=== PATIENT | male | born 1960 | race Caucasian/White ===

== ENCOUNTER 2017-12-27 16:55 | Emergency (ER) | payer BC ==
--- NOTE | 2017-12-27 17:31 | EDM.PDOC ---
ED HPI GENERAL MEDICAL PROBLEM - General Chief Complaint: Abdominal Pain Stated Complaint: abdominal pain Time Seen by Provider: 12/27/17 17:20 Source of Information: Reports: Patient History Limitations: Reports: No Limitations - History of Present Illness INITIAL COMMENTS - FREE TEXT/NARRATIVE: Patient presents to ER with complaints of abdominal pain. States started having an ache in his lower quadrants yesterday, more severe today. Thought possibly could be related to diverticulitis as he has had that before so took 2 cipro doses thus far that he had at home. He states the pain has steadily gotten worse. Feels more bloated now. Does passing much gas. Has been able to eat and drink without nausea or vomiting. Normally has a good BM every day , now hasn't had one since and only went in a small amount. No blood noted. Denies fever. Onset: Gradual Duration: Day(s): Location: Reports: Abdomen Quality: Reports: Ache, Sharp Severity: Moderate Improves with: Reports: Rest Associated Symptoms: Reports: Fever/Chills. 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 SCIENCE TEACHER: ALEVE, Cipro Lower Abdomen Pain Score (Numeric/FACES): 5 - Related Data Allergies Allergy/AdvReac Type Severity Reaction Status Date / Time Penicillins Allergy Redness Verified 12/27/17 17:04 Home Meds: Home Meds Aspirin [Adult Low Dose Aspirin EC] 81 mg PO DAILY 12/27/17 [History] Cabergoline [Dostinex] 5 mg PO BERMUDEZ 12/27/17 [History] Lisinopril 40 mg PO DAILY 12/27/17 [History] RABEprazole [Aciphex] 20 mg PO DAILY 12/27/17 [History] Vitamin B Complex 1 cap PO DAILY 12/27/17 [History] Past Medical History Cardiovascular History: Reports: Hypertension Gastrointestinal History: Reports: Diverticulosis Endocrine/Metabolic History: Reports: Other (See Below) Other Endocrine/Metabolic History: hyperpituitart - Past Surgical History GI Surgical History: Reports: Colonoscopy Musculoskeletal Surgical History: Reports: Carpal Tunnel Social & Family History - Tobacco Use Smoking Status *Q: Never Smoker - Caffeine Use Caffeine Use: Reports: Coffee, Soda - Recreational Drug Use Recreational Drug Use: No ED ROS GENERAL - Review of Systems Review Of Systems: See Below Constitutional: Reports: Fever, Chills. Denies: Malaise, Weakness, Decreased Appetite HEENT: Reports: No Symptoms Respiratory: Denies: Shortness of Breath, Cough Cardiovascular: Denies: Chest Pain, Edema, Lightheadedness Endocrine: Denies: Fatigue GI/Abdominal: Reports: Abdominal Pain, Constipation. Denies: Black Stool, Bloody Stool, Diarrhea, Nausea, Vomiting : Reports: No Symptoms Musculoskeletal: Reports: No Symptoms Skin: Reports: No Symptoms Neurological: Reports: No Symptoms Psychiatric: Reports: No Symptoms Hematologic/Lymphatic: Reports: No Symptoms ED EXAM, GI/ABD - Physical Exam Exam: See Below Exam Limited By: No Limitations General Appearance: Alert, WD/WN, No Apparent Distress Ears: Normal External Exam, Normal TMs Nose: Normal Inspection, Normal Mucosa, No Blood Throat/Mouth: Normal Inspection, Normal Oropharynx Head: Normocephalic Neck: Normal Inspection, Supple, Non-Tender Respiratory/Chest: No Respiratory Distress, Lungs Clear, Normal Breath Sounds Cardiovascular: Regular Rate, Rhythm, No Edema GI/Abdominal Exam: Normal Bowel Sounds, Soft, Tender (lower quads bilaterally) Extremities: Normal Inspection, Normal Capillary Refill Neurological: Alert, Oriented Skin Exam: Warm, Dry Course - Vital Signs Last Recorded V/S: Last Vital Signs Temp 98.8 F 12/27/17 16:58 Pulse 93 12/27/17 16:58 Resp 18 12/27/17 16:58 BP Pulse Ox 96 12/27/17 16:58 - Orders/Labs/Meds Orders: Active Orders 24 hr Category Date Time Status Abdomen 2V AP Flat Upright [CR] Stat Exams 12/27/17 16:49 Taken Abdomen Pelvis w Cont [CT] Routine Exams 12/27/17 Taken Bisacodyl [Dulcolax] Med 12/27/17 20:48 Ordered 10 mg PO ASDIRECTED PRN Labs: Laboratory Tests 12/27/17 12/27/17 12/27/17 Range/Units 16:49 17:00 17:00 WBC 11.2 H (5.0-10.0) 10^3/uL RBC 4.73 (4.50-6.00) 10^6/uL Hgb 14.5 (14.0-18.0) g/dL Hct 43.1 (40.0-54.0) % MCV 91.1 (82.0-94.0) fL MCH 30.7 (27.0-32.0) pg MCHC 33.6 (33.0-38.0) g/dL RDW Coeff of Yeison 13.7 (11.0-15.0) % Plt Count 195 (150-400) 10^3/uL Neut % (Auto) 73.3 (35-85) % Lymph % (Auto) 17.6 (10-55) % [place] % (Auto) 7.5 (0-16) % Eos % (Auto) 1.3 (0-5) % Baso % (Auto) 0.3 (0-3) % Neut # (Auto) 8.19 H (1.80-7.00) 10^3/uL Lymph # (Auto) 1.97 (1.00-4.80) 10^3/uL [place] # (Auto) 0.84 H (0.00-0.80) 10^3/uL Eos # (Auto) 0.14 (0.00-0.45) 10^3/uL Baso # (Auto) 0.03 10^3/uL Sodium 136 (136-145) mEq/L Potassium 3.9 (3.5-5.0) mEq/L Chloride 101 (98-106) mEq/L Carbon Dioxide 27 (21-32) mmol/L BUN 18 (7-18) mg/dL Creatinine 1.3 (0.7-1.3) mg/dL Est Cr Clr Drug Dosing 68.81 mL/min Estimated GFR (MDRD) 57 L (>=60) mL/min Glucose 185 H D (75-99) mg/dL Calcium 9.2 (8.4-10.1) mg/dL Total Bilirubin 2.0 H (0.0-1.0) mg/dL AST 13 L (15-37) U/L ALT 27 (12-78) U/L Alkaline Phosphatase 67 (46-116) U/L C-Reactive Protein 20.8 H (0.2-0.8) mg/dL Total Protein 7.0 (6.4-8.2) g/dL Albumin 3.6 (3.4-5.0) g/dL Urine Color Yellow (YELLOW) Urine Appearance Clear (CLEAR) Urine pH 5.5 (4.5-8.0) Ur Specific [place] 1.015 (1.003-1.020) Urine Protein Negative (NEGATIVE) mg/dL Urine Glucose (UA) Negative (NEGATIVE) mg/dL Urine Ketones Negative (NEGATIVE) mg/dL Urine Occult Blood Negative (NEGATIVE) Urine Nitrite Negative (NEGATIVE) Urine Bilirubin Negative (NEGATIVE) Urine Urobilinogen 1.0 (0.2-1.0) EU/dL Ur Leukocyte Esterase Negative (NEGATIVE) Urine RBC Not seen (0-5) /HPF Urine WBC Not seen (0-5) /HPF Ur Squamous Epith Cells Few H (NOT SEEN) /HPF Meds: Medications Discontinued Medications Generic Name Dose Route Start Last Admin Trade Name Freq PRN Reason Stop Dose Admin Iopamidol 100 ml 12/27/17 18:50 12/27/17 19:00 Isovue-300 (61%) IVPUSH 12/27/17 18:51 100 ml ONETIME ONE Administration - Re-Assessments/Exams Free Text/Narrative Re-Assessment/Exam: 12/27/17 17:43 Labs noted. WBC, CRP elevated. Abdominal xray does show a large amount of stool but no obstruction. Will CT abdomen. Patient resting comfortably. Denies needing anything for pain. Departure - Departure Time of Disposition: 20:41 Disposition: Home, Self-Care 01 Condition: Good Clinical Impression: Diverticulitis - Discharge Information Referrals: Gualberto Michaels MD [Primary Care Provider] - Forms: ED Department Discharge Additional Instructions: 1. Push fluids 2. Cipro 500 mg twice a day for 10 days 3. Dulcolax tabs- 1 tab tonight, 1 in am. If no BM, can take Miralax daily. 4. Tylenol for discomfort 5. Follow up with Dr. Wright for any ongoing concerns. - My Orders Last 24 Hours: My Active Orders 12/27/17 Abdomen Pelvis w Cont [CT] Routine 12/27/17 16:49 Abdomen 2V AP Flat Upright [CR] Stat 12/27/17 20:48 Bisacodyl [Dulcolax] 10 mg PO ASDIRECTED PRN - Assessment/Plan Last 24 Hours: My Active Orders 12/27/17 Abdomen Pelvis w Cont [CT] Routine 12/27/17 16:49 Abdomen 2V AP Flat Upright [CR] Stat 12/27/17 20:48 Bisacodyl [Dulcolax] 10 mg PO ASDIRECTED PRN
[2017-12-27] MEDS: Iopamidol 612 MG/ML 100 ML Bottle IVPUSH ONE (19:00)
[2017-12-27] MEDS: Bisacodyl 5 MG Tab PO PRN (20:56)
== END 2017-12-27 20:57 | disposition home or self-care (01) ==
LOC: CC.ED 16:55
DX: K57.92 Diverticulitis of intestine, part unspecified, without perforation or abscess without bleeding (principal); I10 Essential (primary) hypertension; Z88.0 Allergy status to penicillin; Z79.82 Long term (current) use of aspirin; Z79.899 Other long term (current) drug therapy
CPT/HCPCS: 36415; 74019; 74177; 80053; 81001; 85025; 86140; A9270-GY; Q9967

== ENCOUNTER → 2018-01-09 | Day surgery (SDC) | payer BC ==
[~2018-01-09] MED LIST: Lactated Ringers 1,000 ML IV SCH; Propofol 200 MG/20 ML SDV IV ONE
--- NOTE | 2018-01-09 10:24 | OR ---
DATE OF OPERATION: 01/09/2018 PREOPERATIVE DIAGNOSIS: OBSTIPATION. POSTOPERATIVE DIAGNOSIS: OBSTIPATION. SURGEON: Gualberto Michaels MD PROCEDURE: FULL-LENGTH COLONOSCOPY WITH BIOPSIES X4. 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 COMPLICATIONS: None. SPECIMEN: Sigmoid biopsies x4. FINDINGS: 1. Full-length colonoscopy. 2. Moderate sigmoid diverticulosis. 3. Colon mass 55 cm. RECOMMENDATIONS: The patient will need surgical consultation for possible resection. INDICATIONS: The patient has been having issues with constipation. He has a known history of diverticulosis and a prior colonoscopy 11 years ago. He was agreeable to a repeat procedure. DESCRIPTION OF PROCEDURE: The patient was prepped and draped, placed in the left lateral decubitus position. A lubricated Olympus colonoscope was inserted and easily advanced to the cecum. Direct visualization of the ileocecal valve was accomplished. Bowel prep was adequate. Upon withdrawal of the scope, the cecum, ascending, and transverse colons appeared benign. No lesions were found in the descending colon. The sigmoid area had moderate diverticulosis, mainly starting in its midportion and fairly prominent. No acute inflammatory changes were seen around 50-55 cm. The patient had thickening of the colon over a large segment, likely representing a malignancy, so occupied about 50% of the colon wall and was unresectable with the scope. Three biopsies were taken for confirmation. This was located in the 50-55 cm range. At 40 cm, the patient also had another area of thickening of the colon, likely representing just some peridiverticular inflammation. A biopsy of that was taken as well. It did not have a mass effect like the higher lesion. The rest of the sigmoid and rectosigmoid area was benign without any other lesions seen. The rectal vault was unremarkable with lot of vascularity. Retroflexion showed no perianal lesions. Air was then suctioned. Scope was removed without complication. MALCOLM/ZULY /[id number]
== END ==
LOC: CC.SDS 07:09
PROVIDERS: ATTEND Family Medicine
DX: K57.30 Diverticulosis of large intestine without perforation or abscess without bleeding (principal); N40.0 Benign prostatic hyperplasia without lower urinary tract symptoms; I10 Essential (primary) hypertension; K21.9 Gastro-esophageal reflux disease without esophagitis; Z88.0 Allergy status to penicillin; Z88.1 Allergy status to other antibiotic agents; Z79.82 Long term (current) use of aspirin; Z79.899 Other long term (current) drug therapy; Z72.0 Tobacco use
CPT/HCPCS: 36415; 45380; 82378; 82962; J2704; J7120

== ENCOUNTER → 2023-03-14 | Day surgery (SDC) | payer BC ==
[~2023-03-14] MED LIST changes: +Ketamine 200 MG/20 ML MDV ONE; -Propofol 200 MG/20 ML SDV IV ONE; +Propofol 200 MG/20 ML SDV ONE; +fentaNYL 50 MCG/ML SDV ONE
== END ==
LOC: CC.SDS 06:57
PROVIDERS: ATTEND Family Medicine
DX: K57.30 Diverticulosis of large intestine without perforation or abscess without bleeding (principal); N40.0 Benign prostatic hyperplasia without lower urinary tract symptoms; K21.9 Gastro-esophageal reflux disease without esophagitis; S46.019A Strain of muscle(s) and tendon(s) of the rotator cuff of unspecified shoulder, initial encounter; E78.5 Hyperlipidemia, unspecified; D35.2 Benign neoplasm of pituitary gland; N52.9 Male erectile dysfunction, unspecified; I10 Essential (primary) hypertension; E11.9 Type 2 diabetes mellitus without complications; Z86.010 Personal history of colon polyps; Z88.0 Allergy status to penicillin; Z88.1 Allergy status to other antibiotic agents; Z88.8 Allergy status to other drugs, medicaments and biological substances; Z79.82 Long term (current) use of aspirin; Z79.899 Other long term (current) drug therapy
CPT/HCPCS: 82947; J2704; J3010; J3490; J7120